=== PATIENT | female | born 1985 | race Caucasian/White ===

== ENCOUNTER 2021-11-24 01:47 | Emergency (ER) | payer SELFPAY ==
--- NOTE | ~2021-11-24 | XR_ITS ---
EXAMINATION: XR shoulder RT min 2V DATE: 11/24/2021 02:46 INDICATION: Right shoulder pain. TECHNIQUE: 4 views of right shoulder were obtained. COMPARISON: None. FINDINGS: Bone alignment is normal. No fracture. Joint spaces are well maintained. IMPRESSION: 1. Normal right shoulder. Reviewed, dictated and finalized at location A. IMPRESSION: 1. Normal right shoulder.
[2021-11-24 01:48] VITALS: BP 117/49; PULSE 90; RESP 16; TEMP 36.4; O2SAT 100
--- NOTE | 2021-11-24 03:47 | ED.GENADULT ---
HPI - General Adult General Chief complaint: Extremity Injury, Upper Stated complaint: right shoulder pain Time Seen by Provider: 11/24/21 01:57 History of Present Illness HPI narrative: Patient is a 36-year-old female who presents to the emergency department with chief complaint of right shoulder pain. The patient reports that she has a rotator cuff that was diagnosed by her primary care provider several weeks ago. The patient reports she had an original injury on November 02 and has been followed by her primary provider. The patient reports that she has been placed in a sling by her primary provider and reports that she went to work today and they requested that she come to the emergency department for Worker's Comp. paperwork. The patient reports no new injury Related Data Home Medications Medication Instructions Recorded Confirmed naproxen 11/24/21 Allergies Allergy/AdvReac Type Severity Reaction Status Date / Time No Known Allergies Allergy Verified 11/24/21 01:53 Review of Systems Review of Systems: A 10 system review of systems was completed on the patient and is negative except for what is stated in the HPI. Nursing and ancillary documentation was reviewed. Exam Narrative: GENERAL: Well-appearing, well-nourished, and in no acute distress. HEAD: Normocephalic, atraumatic. EYES: PERRLA and EOMI. ENT: Nares clear, no rhinorrhea or epistaxis. Mucous membranes moist. NECK: Supple. CHEST: Clear to auscultation. No respiratory distress. HEART: Regular rate and rhythm. No murmur heard. Normal peripheral pulses. ABDOMEN: Soft, nontender, nondistended, normal active bowel sounds. EXTREMITIES: Decreased range of motion of the right upper extremity. No edema. SKIN: Warm, dry, no rash. NEURO: No focal deficits. Alert and oriented x3. PSYCH: Normal mood and affect. Course Course Emergency Course: Plain film x-ray shows no evidence of fracture Vital Signs Vital signs: Vital Signs Temperature 36.4 C L 11/24/21 01:48 Pulse Rate 90 11/24/21 01:48 Respiratory Rate 16 11/24/21 01:48 Blood Pressure 117/49 L 11/24/21 01:48 Pulse Oximetry 100 11/24/21 01:48 Oxygen Delivery Room Air 11/24/21 01:48 Temperature 36.4 C L 11/24/21 01:48 Pulse Rate 90 11/24/21 01:48 Respiratory Rate 16 11/24/21 01:48 Blood Pressure 117/49 L 11/24/21 01:48 Pulse Oximetry 100 11/24/21 01:48 Oxygen Delivery Room Air 11/24/21 01:48 Medical Decision Making Vital Signs Vital Signs: Vital Signs Temperature 36.4 C L 11/24/21 01:48 Pulse Rate 90 11/24/21 01:48 Respiratory Rate 16 11/24/21 01:48 Blood Pressure 117/49 L 11/24/21 01:48 Pulse Oximetry 100 11/24/21 01:48 Oxygen Delivery Room Air 11/24/21 01:48 Temperature 36.4 C L 11/24/21 01:48 Pulse Rate 90 11/24/21 01:48 Respiratory Rate 16 11/24/21 01:48 Blood Pressure 117/49 L 11/24/21 01:48 Pulse Oximetry 100 11/24/21 01:48 Oxygen Delivery Room Air 11/24/21 01:48 Discharge Plan Discharge Clinical Impression: Acute pain of right shoulder Patient Disposition: Home, Self-Care Condition: Stable Instructions: Antibiotic Form, Shoulder Pain (ED) Additional Instructions: Please follow-up with your primary provider for completion of your Worker's Comp. paperwork. Prescriptions: No Action naproxen Follow-up/Referrals: PHYSICIAN NOT ON STAFF,NONSTAFF [Primary Care Provider] - Time of Disposition: 03:49
[2021-11-24 05:21] VITALS: BP 101/73; PULSE 73; RESP 16; O2SAT 98
== END 2021-11-24 04:29 | disposition home or self-care (01) ==
PROVIDERS: Emergency Provider Emergency Medicine
DX: M25.511 Pain in right shoulder (principal)
CPT/HCPCS: 73030; 99283

== ENCOUNTER 2023-07-19 14:16 | Outpatient (CLI) | payer OTHER, SELFPAY ==
--- NOTE | ~2023-07-19 | CT_ITS ---
EXAMINATION: CT abdomen pelvis wo con DATE: 07/19/2023 14:43 INDICATION: Right lower quadrant abdominal pain. TECHNIQUE: Computed tomography (CT) of the abdomen and pelvis was performed without intravenous contr ast. Automated exposure control and iterative reconstruction technique were employed. The dose-length product was 269.11 mGy-cm. COMPARISON: None. FINDINGS: The visualized portions of the lung bases are clear without pneumonia or pleural effusion. The heart size is normal. No pericardial effusion. The liver, gallbladder, spleen, pancreas, adrenal glands, and kidneys are normal. There is no urolithiasis. There are no dilated loops of bowel. The ap pendix is not visualized. There are no pathologically enlarged lymph nodes. There is no free intraper itoneal fluid. There is mild lumbar spondylosis. IMPRESSION: 1. No etiology for the patient's symptoms. Reviewed, dictated and finalized at location E.
== END 2023-07-19 14:17 | disposition home or self-care (01) ==
PROVIDERS: Visit Provider Family Medicine
DX: R10.813 Right lower quadrant abdominal tenderness (principal)
CPT/HCPCS: 74176